=== PATIENT | female | born 1980 | race Caucasian/White ===

== ENCOUNTER 2021-03-20 09:03 | Emergency (ER) | payer MEDICAID, SELFPAY ==
[2021-03-20 09:11] VITALS: BP 159/95; PULSE 86; RESP 16; TEMP 36; O2SAT 98; BMI 23.3
--- NOTE | 2021-03-20 09:49 | W.ED.GENADLT ---
HPI - General Adult General: Chief complaint: Urogenital-Female Stated complaint: VAGINAL PAIN (HX PIDS) Time Seen by Provider: 03/20/21 09:19 History of Present Illness: HPI narrative: 41-year-old female with history of pelvic inflammatory disease and BV presenting to the emergency room with new onset of 1 week of vaginal pain and new yellow-cameron vaginal discharge. Patient thinks that she may have bacterial vaginosis again. Patient currently not sexually active. Denies any fever/chills, nausea/vomiting, suprapubic pain has no urinary symptoms. Denies any focal lesions in the groin. Onset:1 week ago Duration:1 week Location:groin Severity:mild Review of Systems Narrative: Constitutional: No fever, no chills. HEENT: No vision changes CV: No chest pain, no palpitations PULM: no cough, no dyspnea. GI: No abdominal pain, no N/V/D. : No dysuria, +pelvic pain/discharge MSKEL: No muscle pain SKIN: No new rashes, no lesions. NEURO: No headache, no focal weakness. HEME: No visible bruises PSYCH: Normal mood Physical Exam Narrative: EXAM NARRATIVE: Head: Atraumatic Eyes: PERRL, conjunctiva without injection ENT: Mucous membrane moist NECK: Supple, ROM intact LUNGS: LCTAB, no crackles/rhonchi CV: RRR ABDOMEN: Soft, nontender in all quadrants EXTREMITY: Normal ROM SKIN: No rash or erythema NEURO: Awake and alert, no focal motor deficits PSYCH: Normal mood and affect : Exam supervised by Radha External genitalia wnjohn. No erythema around cervical os, os closed, +mild whitish discharge, no bleeding. No CMT, no adnexal tenderness. Course Vital Signs: Vital signs: Vital Signs Temperature 96.8 F L 03/20/21 09:11 Pulse Rate 86 03/20/21 09:11 Respiratory Rate 16 03/20/21 09:11 Blood Pressure 159/95 03/20/21 09:11 Pulse Oximetry 98 03/20/21 09:11 MDM - General Adult MDM Narrative: Medical decision making narrative: 41-year-old female with a history of BV and pelvic inflammatory disease presenting to emergency room with 1 week of pelvic pain and new onset of vaginal discharge. On exam, patient is noted to have white discharge in the vaginal canal. Workup: UA, hcg, wet prep, and GC/chlamydia Workup showed bacterial vaginosis Rx metronidazole 500mg BID x 7 days Disposition: Discharge. Patient counseled regarding diagnostic impression, treatment plan. Patient given ED strict return precautions to return for continuation, worsening, or development of new symptoms. Instructed to f/u w/ PCP regarding symptoms today. Patient verbalized understanding. Discharge Plan Discharge Patient Disposition: Home Clinical Impression: Vaginal discharge, Bacterial vaginosis Condition: Stable Prescriptions: New metronidazole 500 mg tablet 500 mg PO BID 7 Days Qty: 14 RF: 0 Discharge Orders: Discharge ED (Routine); Ordered 03/20/21 Ordered By: Smith Franco Discharge Diet: Advance as tolerated Discharge Activity: Resume usual activity Patient Instructions: Vaginal Discharge (ED), Opioid Safety Activity Restrictions/Additional Instructions: Please come in to the emergency you have any new concerning complaints. Please take your antibiotics as instructed. Watch out for signs of skin changes/redness, mouth redeness or swelling, nausea/vomiting, diarrhea, blood in the urine or any new or concering complaints. Coding Level of Care Code ED Licensed Plumber for Sharlene Pacheco
[2021-03-20 10:49] LABS: Add Urine Microscopic? NO; Charge for UA Resulting for Rev
[2021-03-20 11:10] LABS: Bilirubin Urine Neg (Negative); Blood Urine Neg (Negative); Glucose Urine UA Norm (Normal); Ketones Urine Negative (Negative); Leukocyte Esterase Urine Negative (Negative); Nitrate Urine Negative (Negative); Protein Urine Neg (Negative); Specific Gravity, Urine 1.025 (1.005-1.030); Urine Appearance Clear (CLEAR); Urine Color Straw (Yellow); Urobilinogen Urine Norm (Negative); pH Urine 5 (5-7)
[2021-03-20 11:11] VITALS: BP 128/74; PULSE 71; RESP 18; O2SAT 98
== END 2021-03-20 11:01 | disposition home or self-care (01) ==
PROVIDERS: Emergency Provider Emergency Medicine
DX: N76.0 Acute vaginitis (principal)
CPT/HCPCS: 81003; 81025; 87081; 87205; 87210; 99282